=== PATIENT | female | born 1965 | race Caucasian/White ===

== ENCOUNTER 2016-11-23 23:25 | Emergency (ER) | payer OTHER ==
[~2016-11-23] VITALS: Ht 165.1 cm; Wt 90.7 kg
[~2016-11-23 23:25] MED LIST: MACROBID100 M1 PO; SYNTHROID,LEV175 MCG PO
[2016-11-23 23:28] VITALS: BP 162/98
[2016-11-24] MEDS ORDERED: HYDROCODONE BIT1 T11 PO (00:04)
[2016-11-24] MEDS ORDERED: AMOXICILLIN500 M2 PO (00:04)
== END 2016-11-24 01:06 | disposition home or self-care (01) ==
LOC: ED 23:25
DX: K08.89 Other specified disorders of teeth and supporting structures (principal)

== ENCOUNTER → 2019-04-29 | Outpatient (CLI) | payer OTHER ==
[~2019-04-29] MED LIST changes: +AMOXICILLIN500 M2 PO; +HYDROCODONE BIT1 T11 PO
== END | disposition home or self-care (01) ==
LOC: LAB 10:01
PROVIDERS: Orthopaedic Surgery
DX: T14.8XXA Other injury of unspecified body region, initial encounter (principal); M25.512 Pain in left shoulder; W57.XXXA Bitten or stung by nonvenomous insect and other nonvenomous arthropods, initial encounter

== ENCOUNTER → 2020-09-03 | Outpatient (CLI) | payer OTHER ==
[2020-09-03 15:10] LABS: BASO % 0.3 % (0.0-1.0); EOS # 0.1 10*3/uL (0.0-0.4); EOS % 1.4 % (1.0-4.0); HEMATOCRIT 40.1 % (37.0-47.0); LYMPH # 1.8 10*3/uL (1.3-4.4); MEAN CELL VOLUME 89.5 fl (81.0-99.0); MEAN CORPUSCULAR HGB 27.9 pg (27.0-31.0); MEAN CORPUSCULAR HGB CONC 31.2 g/dl (33.0-37.0); MEAN PLATELET VOLUME 8.9 fl (9.6-12.3); MONO # 0.4 10*3/uL (0.1-1.0); MONO % 5.6 % (3.0-9.0); NEUT # 4.6 10*3/uL (2.3-7.9); NEUT % 66.3 % (47.0-73.0); PLATELET COUNT AUTOMATED 287 10*3/uL (130-400); RED BLOOD COUNT 4.48 10*6/uL (4.10-5.10); RED CELL DISTRI WIDTH 14.5 % (0-14.5); WHITE BLOOD COUNT 6.9 10*3/uL (4.8-10.8)
[2020-09-03 15:25] LABS: URIC ACID 4.6 mg/dL (2.6-6.0)
[2020-09-03 16:11] LABS: BODY FLUID WBC 9396 /uL
[2020-09-03 18:23] LABS: BF LYMPHOCYTES 15 %; BF NEUTROPHILS 85 %
[2020-09-04 05:06] LABS: HEP B CORE AB, IGM Negative (Negative); HEPATITIS B SURFACE AG Negative (Negative); HEPATITIS C VIRUS ANTIBODY 0.1 s/co (0.0-0.9); RHEUMATOID ARTHRITIS FACTOR <10.0 IU/mL (0.0-13.9)
[2020-09-04 11:07] LABS: ACID FAST SPEC PROCESSING Direct Inoculation (.)
[2020-09-04 14:13] LABS: ANTI-RNP ANTIBODIES <0.2 AI (0.0-0.9)
[2020-09-04 22:08] LABS: CCP ANTIBODIES IGG/IGA 8 units (0-19)
[2020-09-05 00:06] LABS: LUPUS DRVVT 35.9 sec (0.0-47.0); LUPUS REFLEX INTERPRETATION Comment: (.); PTT-LA 41.8 sec (0.0-51.9)
[2020-09-10 13:09] LABS: HLA-B27 ANTIGEN Negative (.)
[2020-09-14 00:06] LABS: IGG P18 AB Present (.); IGG P23 AB Present (.); IGG P28 AB Present (.); IGG P30 AB Present (.); IGG P39 AB Present (.); IGG P41 AB Present (.); IGG P45 AB Absent (.); IGG P58 AB Present (.); IGG P63 AB Present (.); IGG P66 AB Present (.); IGM P23 AB Absent (.); IGM P39 AB Absent (.); IGM P41 AB Absent (.); LYME IGG WB INTERPRETATION Positive (.); LYME IGM WB INTERPRETATION Negative (.); LYME REFLEX CHARGE CHG
[2020-10-22 12:06] LABS: ACID FAST CULTURE Negative (.)
== END | disposition home or self-care (01) ==
LOC: LAB 14:44
PROVIDERS: ATTEND Orthopaedic Surgery
DX: M25.561 Pain in right knee (principal); M25.461 Effusion, right knee